=== PATIENT | male | born 1960 | race African-American/Black ===

== ENCOUNTER → 2017-01-10 | Outpatient (CLI) | payer OTHER ==
--- NOTE | ~2017-01-10 | MR113 ---
[facility] A Service of [facility] & [facility] RADIOLOGY TEXT RESULTS PATIENT: JOCELYNN GOMEZ JR LOCATION: [facility] : 60 UNIT #: [id number] AGE: [address]: Angus Lawson MD SEX: M ORDER DR: [id number] [address] [address] [id number] O MR#: [id number] Acc #: [id number] NAME: JOCELYNN GOMEZ : 1960 SEX: M STUDY DATE/TIME: 01/10/2017 17:11 UNIT: [facility] ROOM: STUDY DESCRIPTION: MR Lumbar Wo Contrast Attending Physician: Angus Lawson M.D. Referring Physician: Angus Lawson M.D. Ordering Physician: Angus Lawson M.D. Primary Care Physician: Angus Lawson M.D. MRI CENTER REPORT This report is preliminary unless electronic signature is present. EXAM MRI of the lumbar spine without contrast, 01/10/2017 COMPARISON MRI of the lumbar spine without contrast, 05/04/2014 HISTORY Increased back pain on and off for a year. Difficulty walking, numbness and tingling in the feet. The patient has a history of diabetes. FINDINGS Multi-sequence, multiplanar imaging of the lumbar spine was obtained without contrast. Vertebral body heights and alignment are preserved. Degenerative disc signal loss is seen from L3-4 to L5-S1. Conus terminates at L1-2. Signal of conus and cauda equina are within normal limits. Prominence of epidural fat is noted in the lumbar spine. There is narrowing of the thecal sac extending from the level of mid L3 to L5-S1 level. No bone edema, fracture, subluxation or destructive mass is seen. Significant facet hypertrophic changes are noted in bilateral L4-5, left L5-S1. L1-2: Mild bilateral facet hypertrophic changes. No significant canal stenosis or neural foraminal narrowing. L2-3: Mild left foraminal to extraforaminal suspicious broad-based protrusion without any significant canal stenosis or neural foraminal narrowing. L3-4: Concentric disc bulge with mild to moderate right and mild left facet hypertrophic change. There is mild inferior bilateral neural foraminal narrowing. Moderate to severe narrowing of the thecal sac is noted. There is transverse canal stenosis and prominence of posterior STS. [facility] A Service of [facility] & [facility] RADIOLOGY TEXT RESULTS PATIENT: JOCELYNN GOMEZ JR LOCATION: [facility] #: [id number] : 60 UNIT #: [id number] AGE: [address]: Angus Lawson MD SEX: M ORDER DR: epidural fat pad. L4-5: Concentric disc bulge with very severe bilateral facet hypertrophic changes and severe canal stenosis. Mild bilateral lateral recess stenosis is noted particularly in the right. Mild to moderate bilateral neural foraminal narrowing is present. Relatively worse level. L5-S1: Disc osteophyte complex with moderate to severe bilateral facet hypertrophic changes. There is severe narrowing of the thecal sac with some prominent posterior fat pad. Disc bulge is seen with mild prominence of the disc and bilateral foraminal to extraforaminal regions, particularly on the left. Mild to moderate bilateral neural foraminal narrowing is seen with mild bilateral lateral recess stenosis. IMPRESSION 1. Degenerative changes are noted at multiple levels involving the discs and the facet joints. It is worst at L4-5 with severe canal stenosis. Next worst at L3-4. 2. Severe canal stenosis is noted with bilateral neural foraminal narrowing, lateral recess stenosis and severe bilateral facet hypertrophic changes at L4-5. 3. Severe facet hypertrophic changes are in bilateral L4-5, left L5-S1 and to a lesser degree in right L5-S1 facet joints. Correlate with inflammatory changes. No evidence of obvious acute infection in this region. 4. There is moderate to severe narrowing of the thecal sac extending from the level of L3-4 to the level of L5-S1. It has no significant associated disc disease. There is some prominence of the epidural fat in this region probably contributing to the narrowing of the thecal sac suggestive of epidural lipomatosis. Benign. Dictated by... Pascale Abraham M.D. THIS IS AN ELECTRONICALLY VERIFIED REPORT Pascale Abraham M.D. at 01/15/2017 11:36 AM LISA/cynthia TD: 01/11/2017 14:10 JOB #: [id number] MRI CENTER REPORT Page 1 of 1
== END | disposition home or self-care (01) ==
LOC: SMRI 01-04 13:45
DX: M51.36 Other intervertebral disc degeneration, lumbar region (principal); M48.07 Spinal stenosis, lumbosacral region; M48.06 Spinal stenosis, lumbar region; M47.896 Other spondylosis, lumbar region; M47.897 Other spondylosis, lumbosacral region
CPT/HCPCS: 72148